=== PATIENT | female | born 1940 | race Caucasian/White ===

== ENCOUNTER → 2016-08-10 | Outpatient (CLI) | payer MEDICARE | END | disposition home or self-care (01) | LOC: CFH 13:46 | PROVIDERS: ATTEND Internal Medicine | DX: R22.1 Localized swelling, mass and lump, neck (principal) ==

== ENCOUNTER → 2017-09-23 | Outpatient (CLI) | payer MEDICARE | END | disposition home or self-care (01) | LOC: CFH 11:30 | PROVIDERS: ATTEND Internal Medicine | DX: Z12.31 Encounter for screening mammogram for malignant neoplasm of breast (principal); M81.0 Age-related osteoporosis without current pathological fracture; N95.9 Unspecified menopausal and perimenopausal disorder; Z80.3 Family history of malignant neoplasm of breast | CPT/HCPCS: 77080; 77067 ==

== ENCOUNTER 2019-04-10 20:15 | Emergency (ER) | payer MEDICARE ==
[~2019-04-10] VITALS: Ht 157.5 cm; Wt 56.5 kg
[2019-04-10 22:12] LABS: BASOPHILS # (AUTO) 0.02 x10^3/uL (0-0.1); BASOPHILS % (AUTO) 0 % (0-1); EOSINOPHILS # (AUTO) 0.08 x10^3/uL (0-0.4); EOSINOPHILS % (AUTO) 1 % (1-7); LYMPHOCYTES # (AUTO) 1.38 x10^3/uL (1-3.4); LYMPHOCYTES % (AUTO) 25 % (22-44); MD NO; MEAN CORPUSCULAR HGB CONC 32.4 g/dL (32.4-35.8); MEAN CORPUSCULAR VOLUME 98.6 fL (80-100); MEAN PLATELET VOLUME 7.4 fL (7.4-10.4); MONOCYTES % (AUTO) 7 % (2-9); NEUTROPHILS # (AUTO) 3.76 x10^3/uL (1.8-6.8); NEUTROPHILS % (AUTO) 67 % (42-75); PLATELET COUNT 258 x10^3/uL (130-400); RED BLOOD COUNT 4.08 x10^6/uL (3.82-5.3); RED CELL DISTRIBUTION WIDTH 14.2 % (9.6-15.2)
[2019-04-10 22:26] LABS: ANION GAP 4 mmol/L (5-15); CALCIUM 8.8 mg/dL (8.5-10.1); CHLORIDE 108 mmol/L (98-107)
[2019-04-10 22:29] LABS: ALANINE AMINOTRANSFERASE 13 U/L (12-78); ALKALINE PHOSPHATASE 53 U/L (45-117); BILIRUBIN,TOTAL 0.4 mg/dL (0.2-1.0); CREATININE 1.01 mg/dL (0.55-1.02); TOTAL PROTEIN 7.3 g/dL (6.4-8.2)
--- NOTE | 2019-04-11 00:29 | NUR ---
pt called to room from lobby
--- NOTE | 2019-04-11 01:02 | NUR ---
break rn, vss pt on all monitors, a and o x 4 in nad
--- NOTE | 2019-04-11 02:15 | NUR ---
PT UNABLE TO GET UP TO USE RESTROOM/PROVIDE CLEAN CATCH UA. STRAIGHT CATH PERFORMED, 400 CC URINE DRAINED. IV PLACED FOR CT. PT AND WILLIE UPDATED ON PLAN OF CARE. PT C/O BACK DISCOMFORT. WILL CONTINUE TO MONITOR.
[2019-04-11 02:36] LABS: MICROSCOPIC AUTO
[2019-04-11 02:40] LABS: CULTURE INDICATED? YES
[2019-04-11 02:45] LABS: FREE T4 (FREE THYROXINE) 0.79 ng/dL (0.76-1.46)
--- NOTE | 2019-04-11 03:45 | NUR ---
NO CHANGE IN PT STATUS. PT CONTINUES AWAITING CT RESULTS. DAUGHTER DENIES NEEDS AT THIS TIME.
[2019-04-11] MEDS ORDERED: OMNIPAQUE 350 MG/ML, 100ML BOTTLE ONE (04:46)
--- NOTE | 2019-04-11 05:05 | NUR ---
PT CLEARED FOR DISCHARGE. PT ABLE TO AMBULATE WITH ASSISTANCE, DISCHARGED VIA WHEELCHAIR INTO CARE OF DAUGHTER. PT AND DAUGHTER VERBALIZE UNDERSTANDING OF D/C INSTRUCTIONS.
[2019-04-11 05:20] VITALS: BP 171/102
== END 2019-04-11 05:22 | disposition home or self-care (01) ==
LOC: ED 04-11 05:15
DX: K59.00 Constipation, unspecified (principal); E03.4 Atrophy of thyroid (acquired); E78.00 Pure hypercholesterolemia, unspecified; E78.5 Hyperlipidemia, unspecified; Z86.39 Personal history of other endocrine, nutritional and metabolic disease
CPT/HCPCS: 36415; 74021; 74177; 80053; 81001; 83690; 84439; 84443; 85025; 87077; 87086; 87186; 99284; Q9967

== ENCOUNTER 2019-08-31 20:01 | Emergency (ER) | payer MEDICARE ==
[~2019-08-31] VITALS: Ht 160 cm; Wt 56.3 kg
--- NOTE | 2019-08-31 20:31 | NUR ---
PT C/O DIARRHEA FOR "WEEKS" BUT WORSE "LAST FEW DAYS". BEDSIDE COMMODE PLACED IN ROOM. PT CGA FOR TRANSFER. PT CONNECTED TO MONITORING. CALL LIGHT IN REACH.
[2019-08-31] MEDS ORDERED: SODIUM CHLORIDE FLUSH 10ML SYR IVF ONE (21:00)
[2019-08-31] MEDS ORDERED: SODIUM CHLORIDE 0.9% 1,000ML IVBOLUS ONE (21:00)
--- NOTE | 2019-08-31 21:04 | NUR ---
PIV PLACED. LABS DRAWN AND COLLECTED BY X RAY PHYSICIAN. IVF RUNNING. PT AWARE OF NEED FOR STOOL SAMPLE.
[2019-08-31 21:06] LABS: BASOPHILS % (AUTO) 0 % (0-1); EOSINOPHILS # (AUTO) 0.12 x10^3/uL (0-0.4); EOSINOPHILS % (AUTO) 2 % (1-7); LYMPHOCYTES # (AUTO) 0.97 x10^3/uL (1-3.4); LYMPHOCYTES % (AUTO) 16 % (22-44); MD NO; MEAN CORPUSCULAR HEMOGLOBIN 30.3 pg (27.0-34.8); MEAN CORPUSCULAR HGB CONC 32.5 g/dL (32.4-35.8); MEAN PLATELET VOLUME 7.3 fL (7.4-10.4); MONOCYTES # (AUTO) 0.31 x10^3/uL (0.2-0.8); MONOCYTES % (AUTO) 5 % (2-9); NEUTROPHILS # (AUTO) 4.66 x10^3/uL (1.8-6.8); NEUTROPHILS % (AUTO) 77 % (42-75); PLATELET COUNT 300 x10^3/uL (130-400); RED BLOOD COUNT 4.31 x10^6/uL (3.82-5.3); RED CELL DISTRIBUTION WIDTH 14.5 % (9.6-15.2)
[2019-08-31 21:17] LABS: ALANINE AMINOTRANSFERASE 10 U/L (12-78); ALBUMIN 3.9 g/dL (3.4-5.0); ANION GAP 7 mmol/L (5-15); CHLORIDE 107 mmol/L (98-107); CREATININE 1.03 mg/dL (0.55-1.02)
[2019-08-31 21:19] LABS: ALKALINE PHOSPHATASE 62 U/L (45-117); BILIRUBIN,TOTAL 0.4 mg/dL (0.2-1.0); TOTAL PROTEIN 7.1 g/dL (6.4-8.2)
[2019-08-31 21:34] VITALS: BP 153/83
--- NOTE | 2019-08-31 21:38 | NUR ---
ALL RESULTS ARE BACK AT THIS TIME. PROVIDER NOTIFIED PT HAS NOT PROVIDED STOOL SAMPLE AT THIS TIME. CHART UP FOR RECHECK.
[2019-08-31] MEDS ORDERED: LEVO125T5 PO (21:43)
[2019-08-31] MEDS ORDERED: CARB1TAB43 PO (21:43)
[2019-08-31] MEDS ORDERED: ATOR10TA9 PO (21:43)
--- NOTE | 2019-08-31 22:02 | NUR ---
PT AT XRAY
--- NOTE | 2019-08-31 22:16 | NUR ---
PT BACK FROM XRAY. CHART UP FOR RECHECK.
--- NOTE | 2019-08-31 22:28 | NUR ---
SPOKE WITH DAUGHTER ABOUT PT DISCHARGE. DAUGHTER TO COME PICK PT UP.
== END 2019-08-31 23:04 | disposition home or self-care (01) ==
LOC: ED 21:36
DX: K64.4 Residual hemorrhoidal skin tags (principal); R19.7 Diarrhea, unspecified; E78.00 Pure hypercholesterolemia, unspecified; E78.5 Hyperlipidemia, unspecified; E03.9 Hypothyroidism, unspecified; M19.90 Unspecified osteoarthritis, unspecified site
CPT/HCPCS: 36415; 74022; 80053; 85025; 96360; 99284; J7030

== ENCOUNTER 2020-06-25 09:38 | Emergency (ER) | payer MEDICARE ==
[~2020-06-25] VITALS: Ht 162.6 cm; Wt 62.0 kg
[~2020-06-25 09:38] MED LIST: ATOR10TA9 PO; CARB1TAB43 PO; LEVO125T5 PO
[2020-06-25 10:09] LABS: BASOPHILS % (AUTO) 1 % (0-1); EOSINOPHILS % (AUTO) 4 % (1-7); LYMPHOCYTES % (AUTO) 17 % (22-44); MEAN CORPUSCULAR HEMOGLOBIN 29.9 pg (27.0-34.8); MONOCYTES % (AUTO) 8 % (2-9); NEUTROPHILS % (AUTO) 71 % (42-75); PLATELET COUNT 229 x10^3/uL (130-400); RED CELL DISTRIBUTION WIDTH 16.6 % (9.6-15.2)
[2020-06-25 10:10] LABS: MD NO
[2020-06-25 10:21] LABS: ALBUMIN 3.7 g/dL (3.4-5.0); ANION GAP 6 mmol/L (5-15); CALCIUM 8.6 mg/dL (8.5-10.1); CHLORIDE 111 mmol/L (98-107); CREATININE 1.14 mg/dL (0.55-1.02)
--- NOTE | 2020-06-25 10:25 | NUR ---
Task rn: Straight cath ua obtained per guidelines-walked to lab Per[place]wick placed Updated on estimated poc
[2020-06-25 10:26] VITALS: BP 126/57
[2020-06-25 10:36] LABS: MICROSCOPIC AUTO
--- NOTE | 2020-06-25 11:42 | NUR ---
Patient/Caregiver given discharge instructions and they have confirmed that they understand the instructions. Patient ambulatory with steady gait.
== END 2020-06-25 11:43 | disposition other institution (70) ==
LOC: ED 10:39
DX: S29.012A Strain of muscle and tendon of back wall of thorax, initial encounter (principal); M19.90 Unspecified osteoarthritis, unspecified site; E78.5 Hyperlipidemia, unspecified; E03.9 Hypothyroidism, unspecified; E78.00 Pure hypercholesterolemia, unspecified; Z86.39 Personal history of other endocrine, nutritional and metabolic disease; W01.0XXA Fall on same level from slipping, tripping and stumbling without subsequent striking against object, initial encounter; Y93.89 Activity, other specified; Y92.89 Other specified places as the place of occurrence of the external cause; Y99.8 Other external cause status
CPT/HCPCS: 36415; 72072; 80048; 81001; 82040; 85025; 87077; 87086; 87186; 99284